=== PATIENT | female | born 1945 | race Caucasian/White ===

== ENCOUNTER 2018-08-26 18:10 | Emergency (ER) | payer SELFPAY, OTHER ==
[2018-08-26] MEDS: KETOROLAC 15 MG INJ IM (19:42)
== END 2018-08-26 22:12 | disposition home or self-care (01) ==
LOC: E/R 18:10
DX: S92.514A Nondisplaced fracture of proximal phalanx of right lesser toe(s), initial encounter for closed fracture (principal); S20.211A Contusion of right front wall of thorax, initial encounter; I10 Essential (primary) hypertension; W22.8XXA Striking against or struck by other objects, initial encounter; Y92.9 Unspecified place or not applicable
CPT/HCPCS: 71250; 73630; 96372; 99285-25